=== PATIENT | male | born 1980 | race Caucasian/White ===

== ENCOUNTER 2024-07-29 17:03 | Emergency (ER) | payer OTHER ==
[~2024-07-29] VITALS: Ht 190.5 cm; Wt 90.7 kg
[2024-07-29 17:43] VITALS: BP 119/69; TEMP 98.9; O2SAT 98
[2024-07-29] MEDS ORDERED: KETOROLAC TROMETHAMINE 15 MG/ML VIAL ONE (19:16)
[2024-07-29] MEDS ORDERED: dexaMETHasone SOD PHOSPHATE 1 ML ONE (19:16)
[2024-07-29] MEDS ORDERED: CLIN150C16 PO (19:20)
[2024-07-29] MEDS: dexaMETHasone SOD PHOSPHATE 10 MG/ML VIAL IM ONE (19:24)
[2024-07-29] MEDS: KETOROLAC TROMETHAMINE INJ 60 MG/2 ML VIAL IM ONE (19:24)
== END 2024-07-29 19:33 | disposition home or self-care (01) ==
LOC: ER 17:03
DX: J36 Peritonsillar abscess (principal)
CPT/HCPCS: 99284; 96372 ×2; J1100; J1885